=== PATIENT | female | born 1995 | race Caucasian/White ===

== ENCOUNTER → 2019-12-15 | Day surgery (SDC) | payer OTHER ==
[~2019-12-15] VITALS: Ht 157.5 cm; Wt 73.9 kg
[2019-12-15 07:39] VITALS: BP 134/92
[2019-12-15 16:35] VITALS: BP 149/97
== END | disposition home or self-care (01) ==
LOC: DS 06:30 → OR 10:30
PROVIDERS: ATTEND Orthopaedic Surgery
DX: S82.841A Displaced bimalleolar fracture of right lower leg, initial encounter for closed fracture (principal); X58.XXXA Exposure to other specified factors, initial encounter; Y93.89 Activity, other specified; Y92.89 Other specified places as the place of occurrence of the external cause; Y99.8 Other external cause status
CPT/HCPCS: C1713; J0690; J1885; J2175; J2250; J2270; J2405; J2704; J3010; J3490; J7120